=== PATIENT | female | born 2000 | race Two or more races ===

== ENCOUNTER 2024-06-11 15:16 | Emergency (ER) | payer MEDICAID, OTHER ==
[~2024-06-11] VITALS: Ht 157.5 cm; Wt 75.5 kg
--- NOTE | 2024-06-11 15:39 | ED.PDOC ---
History of Present Illness HPI Comments 23-year-old female came to the ER stating that she has been having suprapubic discomfort for the past few weeks. Discomfort associated with nausea. She states that she is . She came to know that she is few days ago. Currently she is not taking any medications for any medical condition. No past surgical history. Denies vaginal bleeding. Denies any other symptoms. 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 History Social History Smoker: Non-Smoker Alcohol: Denies ETOH Use Drugs: Denies Drug Use Constitutional: denies: chills, diaphoresis, fatigue, fever, malaise, sweats, weakness, others EENTM: denies: blurred vision, double vision, ear bleeding, ear discharge, ear drainage, ear pain, ear ringing, eye pain, eye redness, hearing loss, mouth pain, mouth swelling, nasal discharge, nose bleeding, nose congestion, nose pain, photophobia, tearing, throat pain, throat swelling, voice changes, others Respiratory: denies: cough, hemoptysis, orthopnea, SOB at rest, shortness of breath, SOB with excertion, stridor, wheezing, others Gastrointestinal: reports: nausea; denies: abdomen distended, abdominal pain, blood streaked bowels, constipated, diarrhea, dysphagia, difficulty swallowing, hematemesis, melena, poor appetite, poor fluid intake, rectal bleeding, rectal pain, vomiting, others Genitourinary: denies: abnormal vagina bleeding, burning, dyspareunia, dysuria, flank pain, frequency, hematuria, incontinence, pain, , vagina discharge, urgency, others Neurological: denies: dizziness, fainting, headache, left sided numbness, left sided weakness, numbness, paresthesia, pre-existing deficit, right sided n umbness, right sided weakness, seizure, speech problems, tingling, tremors, weakness, others Musculoskeletal: denies: back pain, gout, joint pain, joint swelling, muscle pain, muscle stiffness, neck pain, others Integumetry: denies: bruises, change in color, change in hair/nails, dryness, laceration, lesions, lumps, rash, wounds, others Allergic/Immunocompromised: denies: Difficulty Healing, Frequent Infections, Hives, Itching, others Hematologic/Lymphatic: denies: anemia, blood clots, easy bleeding, easy bruising, swollen glands, others Endocrine: denies: excessive hunger, excessive sweating, excessive thirst, excessive urination, flushing, intolerance to cold, intolerance to heat, unexplained weight gain, unexplained weight loss, others Psychiatric: denies: anxiety, bipolar disorder, depression, hopeless, panic disorder, schizophrenia, sleepless, suicidal, others Physical Exam General Appearance: Moderate Distress HEENT: Normal ENT Inspection, Pharynx Normal, TMs Normal Neck: Full Range of Motion, Non-Tender, Normal, Normal Inspection Respiratory: Chest Non-Tender, Lungs Clear, No Accessory Muscle Use, No Respiratory Distress, Normal Breath Sounds Cardiovascular: No Edema, No JVD, No Murmur, No Gallop, Normal Peripheral Pulses, Regular Rate/Rhythm Breast Exam: Deferred Gastrointestinal: No Organomegaly, Non Tender, No Pulsatile Mass, Normal Bowel Sounds, Soft Genitalia: Deferred Pelvic: Deferred Rectal: Deferred Extremities: No calf tenderness, Normal capillary refill, Normal inspection, Normal range of motion, Non-tender, No pedal edema Musculoskeletal : Apperance: Normal Neurologic: Alert, nurse advisor II-XII nml as Tested, No Motor Deficits, Normal Affect, Normal Mood, No Sensory Deficits Cerebellar Function: Normal Reflexes: Normal Skin: Dry, Normal Color, Warm Peripheral Pulses: 3+ Radial (R), 3+ Radial (L) Lymphatic: No Adenopathy Was a procedure done? Was a procedure done?: No Differential Dx Considerations may include: Urinary tract infection X-Ray, Labs, Meds, VS Vital Signs Date Time Temp Pulse Resp B/P (MAP) Pulse Ox O2 Delivery O2 Flow Rate FiO2 06/11/24 15:30 98.1 95 18 148/85 (106) 96 Lab Test 06/11/24 16:17 Range/Units Beta HCG, Quantitative 47880.4 H 1.5-4.2 mIU/mL Patient alert. Complaining of suprapubic discomfort. Vitals stable. Answering questions. Ultrasound urinalysis will be followed by night physician. Explained to the patient. Was told to follow up with her OBGYN. Was told to follow up with her primary care physician. Was told to come back if there is any problem. Time of 1ST Reevaluation: 15:37 Reevaluation 1ST: Unchanged Patient Education/Counseling: Diagnosis, Treatment, Prognosis, Need For Follow Up Family Education/Counseling: No Family Present Departure 1 Departure Time of Disposition: 15:38 Impression: Primary Impression: Normal Qualified Codes: Z34.90 - Encounter for supervision of normal , unspecified, unspecified trimester Disposition: 30 STILL A PATIENT Condition: Good Discharged With: Self Critical Care Note Critical Care Time?: No Stability Stability form required: No Heart Score Heart Score: Heart Score Response (Comments) Value History N/A 0 EKG N/A 0 Age N/A 0 Risk Factors N/A 0 Troponin N/A 0 Total 0 SUKHDEV WITT MD Jun 11, 2024 15:39
--- NOTE | 2024-06-11 17:37 | DVH ---
OB ULTRASOUND <14 WEEKS: HISTORY: vaginalcramping TECHNIQUE: Multiple real-time grayscale sonographic images of the pelvis with duplex Doppler color f low, spectral and M-mode analysis. TRANSDUCERS: Transabdominal COMPARISON: None FINDINGS: The uterus measures 11.4 x 8.6 x 5.8 cm The cervix is not visualized Right ovary measures 4.3 x 2.2 x 3.5 cm with normal Doppler color flow. Right ovarian hemorrhagic cys t is present. Left ovary measures 1.7 x 1.4 x 2.0 cm with normal Doppler color flow. IUP single fetus at 7 weeks and 4 days average ultrasound age based on mean crown-rump length of 1.0 cm and gestational sac size of 2.9 cm heart rate detected at 147 beats per minute. Yolk sac is present. Amniotic fluid is subjectively within normal limits Jessica-gestational space: Subchorionic hematoma is present measuring 2.5 x 2.5 cm. IMPRESSION: IUP single live fetus 7 weeks and 4 days AUA corresponding to an JAGJIT of 01/24/2025. Small subchorionic hematoma is present measuring 2.5 x 2.5 cm. Close clinical and sonographic follow- up advised.
[2024-06-11 18:04] VITALS: PULSE 77; RESP 16; O2SAT 99
[2024-06-11 18:36] LABS: Urine Bacteria FEW /hpf (None Seen); Urine Blood Negative /uL (Negative); Urine Clarity Clear (Clear); Urine Color Light-Yellow (Yellow); Urine Mucus FEW (None Seen); Urine Protein, UAD Negative (Negative); Urine Specific Gravity 1.016 (1.001-1.035); Urine Squamous Epithelial Cell FEW /hpf (<5); Urine Urobilinogen Normal (Negative); Urine WBC < 1 /HPF (0-5)
[2024-06-11] MEDS ORDERED: NITR-87 PO (20:29)
[2024-06-11 20:51] VITALS: BP 129/62; PULSE 77; RESP 18; TEMP 98.1; O2SAT 99
== END 2024-06-11 20:52 | disposition home or self-care (01) ==
LOC: ER 15:16
DX: O26.891 Other specified pregnancy related conditions, first trimester (principal); R10.30 Lower abdominal pain, unspecified; R10.2 Pelvic and perineal pain; Z3A.01 Less than 8 weeks gestation of pregnancy
CPT/HCPCS: 36415; 76801; 81001; 84702